=== PATIENT | female | born 1985 | race American Indian/Alaskan Native ===

== ENCOUNTER 2019-08-01 10:38 | Emergency (ER) | payer MEDICAID, OTHER ==
[2019-08-01 10:45] VITALS: BP 117/76
[2019-08-01 11:42] LABS: Bacteria,Urine 1+ /HPF (Negative); Bilirubin,Urine NEG (Negative); Blood,Urine LG (Negative); Color,Urine Yellow (Yellow); Mucus,Urine FEW /HPF; Protein,Urine <15 mg/dL mg/dL (Negative); Urobilinogen,Urine < 2.0 mg/dL (<2.0)
[2019-08-01 11:47] LABS: HCG Qualitative,Urine Negative (Negative)
== END 2019-08-01 13:58 ==
LOC: ED 10:38
DX: N89.8 Other specified noninflammatory disorders of vagina (principal); Z53.21 Procedure and treatment not carried out due to patient leaving prior to being seen by health care provider
CPT/HCPCS: 81001; 81025